=== PATIENT | female | born 1970 | race Hispanic/Latino ===

== ENCOUNTER 2020-08-03 11:50 | Emergency (ER) | payer SELFPAY ==
[~2020-08-03] VITALS: Ht 154.9 cm; Wt 90.7 kg
[2020-08-03] MEDS ORDERED: CLINDAMYCIN HC150 MG PO (12:05)
[2020-08-03] MEDS ORDERED: HIBICLENS120 ML TOP (12:05)
== END 2020-08-03 12:25 | disposition home or self-care (01) ==
LOC: ER 12:00
DX: L03.116 Cellulitis of left lower limb (principal); R73.9 Hyperglycemia, unspecified
CPT/HCPCS: 36415; 82948; 99283

== ENCOUNTER 2022-01-04 06:50 | Inpatient (IN) | payer SELFPAY ==
[~2022-01-04] VITALS: Ht 154.9 cm; Wt 112.0 kg
[~2022-01-04 06:50] MED LIST: CLINDAMYCIN HC150 MG PO; HIBICLENS120 ML TOP; SODIUM CHLORIDE FLUSH 10 ML SYR IV PRN
[2022-01-04] MEDS ORDERED: ONDANSETRON HCL INJ 2MG/ML 2ML 2 MG/ML VIAL IV STA (07:15)
[2022-01-04 08:07] LABS: BASOPHILS # (AUTO) 0.1 (0.0-0.1); BASOPHILS % 0.9 % (0.0-1.0); EOSINOPHILS # (AUTO) 0.2 (0.0-0.4); EOSINOPHILS % 3.4 % (0.0-6.0); HEMATOCRIT 39.7 % (34.2-44.1); HEMOGLOBIN 11.9 g/dL (12.0-16.0); LYMPHOCYTES # (AUTO) 1.3 (1.0-3.2); LYMPHOCYTES % 20.4 % (18.0-39.1); MEAN CORPUSCULAR HEMOGLOBIN 25.1 pg (28-32); MEAN CORPUSCULAR VOLUME 83.8 fL (81-99); MONOCYTES # (AUTO) 0.5 (0.2-0.8); NEUTROPHILS # (AUTO) 4.4 (2.1-6.9); PLATELET COUNT 138 x10e3/uL (140-360); RED BLOOD COUNT 4.74 x10e6/uL (3.6-5.1); RED CELL DISTRIBUTION WIDTH 16.3 % (11.7-14.4)
[2022-01-04 08:37] LABS: ALANINE AMINOTRANSFERASE 17 IU/L (0-55); ALBUMIN/GLOBULIN RATIO 0.8 (0.8-2.0); ALKALINE PHOSPHATASE 141 IU/L (40-150); ANION GAP 15.4 mmol/L (8-16); BLOOD UREA NITROGEN 10 mg/dL (7-26); BUN/CREATININE RATIO 15 (6-25); CALCIUM 7.9 mg/dL (8.4-10.2); CARBON DIOXIDE 23 mmol/L (22-29); CHLORIDE 104 mmol/L (98-107); CREATININE, SERUM 0.68 mg/dL (0.57-1.11); GLUCOSE 105 mg/dL (74-118); LIPASE 36 U/L (8-78); POTASSIUM 3.4 mmol/L (3.5-5.1); SODIUM 139 mmol/L (136-145)
[2022-01-04 08:42] LABS: AMPHETAMINES SCREEN,URINE NEGATIVE (NEGATIVE); PHENCYCLIDINE SCREEN,URINE NEGATIVE (NEGATIVE)
[2022-01-04 08:43] LABS: BENZODIAZEPINES SCREEN,URINE NEGATIVE (NEGATIVE); CLARITY,URINE CLEAR (CLEAR); COLOR,URINE YELLOW (YELLOW); LEUKOCYTE ESTERASE ,URINE NEGATIVE (NEGATIVE); NITRITE,URINE NEGATIVE (NEGATIVE)
[2022-01-04 08:44] LABS: INR 1.15; KETONES,URINE TRACE (NEGATIVE); PROTEIN,URINE DIPSTICK 2+ (NEGATIVE); PROTHROMBIN TIME 15.7 seconds (11.9-14.5); URINE UROBILINOGEN 0.2 mg/dL (0.2 - 1)
[2022-01-04 08:45] LABS: PARTIAL THROMBOPLASTIN TIME 40.5 seconds (23.8-35.5)
[2022-01-04 08:46] LABS: BACTERIA,URINE MODERATE /HPF; EPITHELIAL CELLS,URINE FEW /LPF; RBC,URINE 0-5 /HPF (0-5)
[2022-01-04] MEDS ORDERED: IOPAMIDOL 370 MG/ML 100 ML INFUS..BTL INJ ONE (09:09)
[2022-01-04] MEDS ORDERED: ONDANSETRON HCL INJ 2MG/ML 2ML 2 MG/ML VIAL IV PRN (11:30)
[2022-01-04] MEDS ORDERED: ALBUMIN 25% 12.5GM 50ML 300 ML IV ONE (13:41)
[2022-01-04] MEDS ORDERED: ALBUMIN 25% 12.5GM 50ML 50 ML IV ONE (13:59)
[2022-01-04 15:39] VITALS: BP 114/57
[2022-01-04 16:44] LABS: BODY FLUID APPEARANCE SL.CLOUDY; BODY FLUID COLOR YELLOW; BODY FLUID TYPE PERITONEAL; WBC,BODY FLUID 155 cells/uL
[2022-01-04 16:45] LABS: RBC,BODY FLUID < 2000 cells/uL
[2022-01-04 19:21] LABS: LYMPHOCYTES,BODY FLUID 6 %; MONO/MACROPHG,BODY FLUID 86 %; NEUTROPHILS,BODY FLUID 4 %; OTHER CELLS,BODY FLUID 4 %
[2022-01-04 20:00] VITALS: BP 132/65
[2022-01-04 20:12] VITALS: BP 132/65
[2022-01-04 23:51] VITALS: BP 113/66
[2022-01-05] MEDS ORDERED: ONDANSETRON HCL INJ 2MG/ML 2ML 2 MG/ML VIAL IV PRN (00:30)
[2022-01-05] MEDS ORDERED: HYDRALAZINE HCL 20 MG/ML VIAL IV PRN (00:30)
[2022-01-05] MEDS ORDERED: ACETAMINOPHEN 325 MG TAB PO PRN (00:30)
[2022-01-05 04:27] VITALS: BP 128/66
[2022-01-05 06:20] LABS: BASOPHILS % 0.5 % (0.0-1.0); EOSINOPHILS # (AUTO) 0.1 (0.0-0.4); EOSINOPHILS % 2.5 % (0.0-6.0); HEMATOCRIT 32.8 % (34.2-44.1); HEMOGLOBIN 10.2 g/dL (12.0-16.0); LYMPHOCYTES % 18.3 % (18.0-39.1); MEAN CORPUSCULAR HGB CONC 31.1 g/dL (31-35); MEAN CORPUSCULAR VOLUME 80.4 fL (81-99); MONOCYTES # (AUTO) 0.4 (0.2-0.8); MONOCYTES % 6.2 % (4.4-11.3); NEUTROPHILS # (AUTO) 4.1 (2.1-6.9); PLATELET COUNT 104 x10e3/uL (140-360); RED BLOOD COUNT 4.08 x10e6/uL (3.6-5.1); RED CELL DISTRIBUTION WIDTH 16.4 % (11.7-14.4)
[2022-01-05 06:52] LABS: ALBUMIN 2.9 g/dL (3.5-5.0); ALBUMIN/GLOBULIN RATIO 1.3 (0.8-2.0); ANION GAP 12.7 mmol/L (8-16); CALCIUM 7.6 mg/dL (8.4-10.2); CREATININE, SERUM 0.64 mg/dL (0.57-1.11); POTASSIUM 3.7 mmol/L (3.5-5.1)
[2022-01-05 07:14] LABS: FERRITIN 48.75 ng/mL (4.63-204.00)
[2022-01-05 08:14] VITALS: BP 102/49
[2022-01-05 08:19] LABS: HIV 1&2 AB SCREEN NON-REACTIVE (NONREACTIVE)
[2022-01-05] MEDS: DOCUSATE SODIUM 100 MG CAP PO SCH (08:34)
[2022-01-05] MEDS: SPIRONOLACTONE 25 MG TAB PO SCH ×2 (08:34→16:25)
[2022-01-05] MEDS: SENNOSIDES 8.6 MG TAB PO SCH (08:34)
[2022-01-05 08:44] VITALS: BP 131/63
[2022-01-05] MEDS ORDERED: FUROSEMIDE 40 MG TAB PO SCH (09:00)
[2022-01-05] MEDS ORDERED: FUROSEMIDE INJ 10 MG/ML 4 ML VIAL IV SCH (09:00)
[2022-01-05] MEDS: FOLIC ACID 1 MG TAB PO SCH (11:28)
[2022-01-05 16:08] VITALS: BP 110/55
[2022-01-05] MEDS: ENOXAPARIN SOD INJ 40 MG/0.4 ML SYR SC SCH (16:25)
[2022-01-05 20:00] VITALS: BP 129/64
[2022-01-06] VITALS (9 sets, daily range): BP systolic 108–131; BP diastolic 53–79
[2022-01-06 06:53] LABS: BASOPHILS % 0.7 % (0.0-1.0); EOSINOPHILS # (AUTO) 0.2 (0.0-0.4); EOSINOPHILS % 3.7 % (0.0-6.0); HEMATOCRIT 32.2 % (34.2-44.1); HEMOGLOBIN 10.2 g/dL (12.0-16.0); LYMPHOCYTES # (AUTO) 1.2 (1.0-3.2); LYMPHOCYTES % 21.4 % (18.0-39.1); MEAN CORPUSCULAR HEMOGLOBIN 25.2 pg (28-32); MEAN CORPUSCULAR HGB CONC 31.7 g/dL (31-35); MEAN CORPUSCULAR VOLUME 79.5 fL (81-99); MONOCYTES # (AUTO) 0.4 (0.2-0.8); MONOCYTES % 7.7 % (4.4-11.3); NEUTROPHILS # (AUTO) 3.8 (2.1-6.9); NEUTROPHILS % 66.2 % (38.7-80.0); PLATELET COUNT 112 x10e3/uL (140-360); RED BLOOD COUNT 4.05 x10e6/uL (3.6-5.1); RED CELL DISTRIBUTION WIDTH 16.2 % (11.7-14.4)
[2022-01-06 07:17] LABS: ALBUMIN 2.9 g/dL (3.5-5.0); ALBUMIN/GLOBULIN RATIO 1.3 (0.8-2.0); ANION GAP 12.3 mmol/L (8-16); CALCIUM 7.9 mg/dL (8.4-10.2); CREATININE, SERUM 0.61 mg/dL (0.57-1.11); POTASSIUM 3.3 mmol/L (3.5-5.1)
[2022-01-06] MEDS ORDERED: POTASSIUM CHLORIDE 20 MEQ TAB CR PO ONE (10:00)
[2022-01-06] MEDS: IRON SUCROSE 100 MG in SODIUM CHLORIDE 0.9% 100 ML IV SCH (10:12)
[2022-01-06] MEDS: FUROSEMIDE INJ 10 MG/ML 4 ML VIAL IV SCH ×2 (10:12→21:34)
[2022-01-06] MEDS: DOCUSATE SODIUM 100 MG CAP PO SCH (10:12)
[2022-01-06] MEDS: SPIRONOLACTONE 25 MG TAB PO SCH ×2 (10:12→17:36)
[2022-01-06] MEDS: SENNOSIDES 8.6 MG TAB PO SCH (10:13)
[2022-01-06] MEDS: FOLIC ACID 1 MG TAB PO SCH (10:13)
[2022-01-06] MEDS ORDERED: SODIUM CHLORIDE 0.9% 100 ML ONE (10:27)
[2022-01-06] MEDS ORDERED: ALBUMIN 25% 12.5GM 50ML 150 ML IV ONE (16:52)
[2022-01-06] MEDS: ENOXAPARIN SOD INJ 40 MG/0.4 ML SYR SC SCH (17:00)
[2022-01-06] MEDS ORDERED: ALBUMIN 25% 12.5GM 50ML 50 ML IV ONE (17:29)
[2022-01-07] VITALS (7 sets, daily range): BP systolic 111–129; BP diastolic 56–73
[2022-01-07 06:11] LABS: BASOPHILS % 0.7 % (0.0-1.0); EOSINOPHILS # (AUTO) 0.2 (0.0-0.4); HEMATOCRIT 31.6 % (34.2-44.1); LYMPHOCYTES # (AUTO) 1.1 (1.0-3.2); LYMPHOCYTES % 23.3 % (18.0-39.1); MEAN CORPUSCULAR HEMOGLOBIN 25.6 pg (28-32); MEAN CORPUSCULAR HGB CONC 31.6 g/dL (31-35); MONOCYTES # (AUTO) 0.3 (0.2-0.8); MONOCYTES % 7.6 % (4.4-11.3); NEUTROPHILS # (AUTO) 2.9 (2.1-6.9); NEUTROPHILS % 64.2 % (38.7-80.0); PLATELET COUNT 103 x10e3/uL (140-360); RED CELL DISTRIBUTION WIDTH 16.1 % (11.7-14.4)
[2022-01-07 06:48] LABS: ALBUMIN 3.4 g/dL (3.5-5.0); ALBUMIN/GLOBULIN RATIO 1.9 (0.8-2.0); ANION GAP 12.2 mmol/L (8-16); CALCIUM 7.9 mg/dL (8.4-10.2); CREATININE, SERUM 0.61 mg/dL (0.57-1.11); MAGNESIUM 1.9 MG/DL (1.3-2.1); POTASSIUM 3.2 mmol/L (3.5-5.1)
[2022-01-07] MEDS: SENNOSIDES 8.6 MG TAB PO SCH (09:00)
[2022-01-07] MEDS: SPIRONOLACTONE 25 MG TAB PO SCH ×2 (09:06→17:02)
[2022-01-07] MEDS: DOCUSATE SODIUM 100 MG CAP PO SCH (09:07)
[2022-01-07] MEDS: FUROSEMIDE INJ 10 MG/ML 4 ML VIAL IV SCH ×2 (09:07→20:26)
[2022-01-07] MEDS: IRON SUCROSE 100 MG in SODIUM CHLORIDE 0.9% 100 ML IV SCH (09:07)
[2022-01-07] MEDS: FOLIC ACID 1 MG TAB PO SCH (09:08)
[2022-01-07] MEDS ORDERED: POTASSIUM CHLORIDE 20 MEQ TAB CR PO NR (14:00)
[2022-01-07] MEDS: ENOXAPARIN SOD INJ 40 MG/0.4 ML SYR SC SCH (17:00)
[2022-01-08] VITALS (7 sets, daily range): BP systolic 105–130; BP diastolic 57–75
[2022-01-08 05:57] LABS: ANION GAP 12.7 mmol/L (8-16); CALCIUM 8.3 mg/dL (8.4-10.2); CREATININE, SERUM 0.64 mg/dL (0.57-1.11); POTASSIUM 3.7 mmol/L (3.5-5.1)
[2022-01-08] MEDS: FUROSEMIDE INJ 10 MG/ML 4 ML VIAL IV SCH ×2 (08:30→21:17)
[2022-01-08] MEDS: IRON SUCROSE 100 MG in SODIUM CHLORIDE 0.9% 100 ML IV SCH (08:30)
[2022-01-08] MEDS: DOCUSATE SODIUM 100 MG CAP PO SCH (08:31)
[2022-01-08] MEDS: FOLIC ACID 1 MG TAB PO SCH (08:31)
[2022-01-08] MEDS: SPIRONOLACTONE 25 MG TAB PO SCH ×2 (08:31→17:21)
[2022-01-08] MEDS: SENNOSIDES 8.6 MG TAB PO SCH (08:32)
[2022-01-08] MEDS: ENOXAPARIN SOD INJ 40 MG/0.4 ML SYR SC SCH (17:00)
[2022-01-09] VITALS: BP 120/80
[2022-01-09 04:00] VITALS: BP 114/61
[2022-01-09 07:58] VITALS: BP 118/69
[2022-01-09 08:24] VITALS: BP 118/69
[2022-01-09 08:42] LABS: BASOPHILS % 0.6 % (0.0-1.0); EOSINOPHILS # (AUTO) 0.2 (0.0-0.4); EOSINOPHILS % 3.4 % (0.0-6.0); HEMATOCRIT 39.3 % (34.2-44.1); HEMOGLOBIN 12.2 g/dL (12.0-16.0); LYMPHOCYTES # (AUTO) 1.3 (1.0-3.2); LYMPHOCYTES % 18.7 % (18.0-39.1); MEAN CORPUSCULAR HEMOGLOBIN 25.1 pg (28-32); MEAN CORPUSCULAR VOLUME 80.9 fL (81-99); MONOCYTES # (AUTO) 0.4 (0.2-0.8); MONOCYTES % 5.7 % (4.4-11.3); NEUTROPHILS % 71.3 % (38.7-80.0); PLATELET COUNT 130 x10e3/uL (140-360); RED BLOOD COUNT 4.86 x10e6/uL (3.6-5.1)
[2022-01-09 09:10] LABS: ALBUMIN 3.5 g/dL (3.5-5.0); ALBUMIN/GLOBULIN RATIO 1.3 (0.8-2.0); ANION GAP 14.7 mmol/L (8-16); CALCIUM 8.3 mg/dL (8.4-10.2); CREATININE, SERUM 0.74 mg/dL (0.57-1.11); POTASSIUM 3.7 mmol/L (3.5-5.1)
[2022-01-09] MEDS: FUROSEMIDE INJ 10 MG/ML 4 ML VIAL IV SCH (09:33)
[2022-01-09] MEDS: DOCUSATE SODIUM 100 MG CAP PO SCH (09:34)
[2022-01-09] MEDS: IRON SUCROSE 100 MG in SODIUM CHLORIDE 0.9% 100 ML IV SCH (09:34)
[2022-01-09] MEDS: SENNOSIDES 8.6 MG TAB PO SCH (09:34)
[2022-01-09] MEDS: FOLIC ACID 1 MG TAB PO SCH (09:34)
[2022-01-09] MEDS: SPIRONOLACTONE 25 MG TAB PO SCH ×2 (09:34→16:45)
[2022-01-09] MEDS ORDERED: SODIUM CHLORIDE 0.9% 250ML 250 ML ONE (09:53)
[2022-01-09 11:28] VITALS: BP 118/67
[2022-01-09] MEDS ORDERED: CEFTRIAXONE 1 GM VIAL ONE (12:19)
[2022-01-09] MEDS ORDERED: LASIX40 MG PO (13:21)
[2022-01-09] MEDS ORDERED: FEROSUL325 MG PO (13:21)
[2022-01-09] MEDS ORDERED: ALDACTONE50 MG PO (13:21)
[2022-01-09 15:17] VITALS: BP 103/59
[2022-01-09] MEDS: ENOXAPARIN SOD INJ 40 MG/0.4 ML SYR SC SCH (16:46)
== END 2022-01-09 16:53 | disposition home or self-care (01) | DRG 433 ==
LOC: ER 07:02 → ERHOLD 11:34 → MED/SURG2 15:05
PROVIDERS: ADMIT Internal Medicine; ATTEND Internal Medicine
PROC: 0W9G3ZZ Drainage of Peritoneal Cavity, Percutaneous Approach (ICD-10-PCS; 2022-01-04)
PROC: 0W9G3ZZ Drainage of Peritoneal Cavity, Percutaneous Approach (ICD-10-PCS; principal; 2022-01-06)
DX: K74.60 Unspecified cirrhosis of liver (principal); K76.6 Portal hypertension; R18.8 Other ascites; Z68.42 Body mass index [BMI] 45.0-49.9, adult; N39.0 Urinary tract infection, site not specified; E66.01 Morbid (severe) obesity due to excess calories; D64.9 Anemia, unspecified; D69.59 Other secondary thrombocytopenia; D63.8 Anemia in other chronic diseases classified elsewhere; E87.6 Hypokalemia; Z20.822 Contact with and (suspected) exposure to COVID-19
CPT/HCPCS: 36415; 49083; 71045; 74177; 74470; 76705; 80048; 80053; 80307; 81001; 82040; 82105; 82607; 82728; 82746; 83540; 83690; 83735; 83880; 84157; 84443; 84466; 84484; 85025; 85045; 85610; 85730; 86039; 86704; 87070; 87205; 87390; 88112; 88305; 89051; 93005; 99284; C1729; G0433; G0435; J0696; J1650; J1756; J1940; J7050; Q9967

== ENCOUNTER 2022-03-20 10:54 | Inpatient (IN) | payer SELFPAY ==
[~2022-03-20] VITALS: Ht 152.4 cm; Wt 102.2 kg
[~2022-03-20 10:54] MED LIST changes: +ALDACTONE50 MG PO; +FEROSUL325 MG PO; +LASIX40 MG PO; -SODIUM CHLORIDE FLUSH 10 ML SYR IV PRN
[2022-03-20] MEDS ORDERED: FUROSEMIDE INJ 10 MG/ML 4 ML VIAL IV ONE (11:30)
[2022-03-20 11:46] LABS: BASOPHILS # (AUTO) 0.1 (0.0-0.1); BASOPHILS % 0.6 % (0.0-1.0); EOSINOPHILS # (AUTO) 0.1 (0.0-0.4); EOSINOPHILS % 1.5 % (0.0-6.0); HEMATOCRIT 35.1 % (34.2-44.1); LYMPHOCYTES % 12.8 % (18.0-39.1); MEAN CORPUSCULAR HEMOGLOBIN 27.2 pg (28-32); MEAN CORPUSCULAR HGB CONC 31.3 g/dL (31-35); MEAN CORPUSCULAR VOLUME 86.9 fL (81-99); MONOCYTES # (AUTO) 0.5 (0.2-0.8); MONOCYTES % 6.4 % (4.4-11.3); NEUTROPHILS # (AUTO) 6.3 (2.1-6.9); NEUTROPHILS % 78.2 % (38.7-80.0); PLATELET COUNT 167 x10e3/uL (140-360); RED BLOOD COUNT 4.04 x10e6/uL (3.6-5.1); RED CELL DISTRIBUTION WIDTH 18.6 % (11.7-14.4)
[2022-03-20 11:56] LABS: INR 1.35; PROTHROMBIN TIME 17.8 seconds (11.9-14.5)
[2022-03-20 12:01] LABS: ALBUMIN 2.8 g/dL (3.5-5.0); ALBUMIN/GLOBULIN RATIO 0.7 (0.8-2.0); CALCIUM 8.5 mg/dL (8.4-10.2); CREATININE, SERUM 0.81 mg/dL (0.57-1.11)
[2022-03-20 12:05] LABS: MAGNESIUM 2.1 MG/DL (1.3-2.1)
[2022-03-20] MEDS ORDERED: ONDANSETRON HCL INJ 2MG/ML 2ML 2 MG/ML VIAL IV PRN ×2 (12:30→23:45)
[2022-03-20] MEDS ORDERED: SODIUM CHLORIDE FLUSH 10 ML SYR INJ PRN (12:30)
[2022-03-20] MEDS ORDERED: ALBUMIN 25% 12.5GM 0.25 GM/ML BTL IV ONE (12:30)
[2022-03-20] MEDS ORDERED: SPIRONOLACTONE25 MG PO (14:31)
[2022-03-20 15:58] VITALS: BP 115/80
[2022-03-20] MEDS ORDERED: ALBUMIN 25% 12.5GM 50ML 100 ML IV ONE (16:50)
[2022-03-20 20:00] VITALS: BP 111/70
[2022-03-20] MEDS ORDERED: DIPHENHYDRAMINE HCL 25 MG CAP PO PRN (23:45)
[2022-03-20] MEDS ORDERED: FUROSEMIDE INJ 10 MG/ML 2 ML VIAL IV SCH (23:45)
[2022-03-20] MEDS ORDERED: DOCUSATE SODIUM 100 MG CAP PO PRN (23:45)
[2022-03-20] MEDS ORDERED: MELATONIN 5 MG TABLET PO PRN (23:45)
[2022-03-20] MEDS ORDERED: POTASSIUM CHLORIDE 20 MEQ TAB CR PO PRN (23:45)
[2022-03-20] MEDS ORDERED: DEXTROSE 50% SYRINGE 50 ML IV PRN (23:45)
[2022-03-20] MEDS ORDERED: ALBUMIN 25% 25GM 100ML 0.25 GM/ML BTL IV ONE (23:45)
[2022-03-20] MEDS ORDERED: LIDOCAINE 4% PATCH TP PRN (23:45)
[2022-03-20] MEDS ORDERED: HYDRALAZINE HCL 20 MG/ML VIAL IV PRN (23:45)
[2022-03-20] MEDS ORDERED: SIMETHICONE 80 MG CHEW PO PRN (23:45)
[2022-03-20] MEDS ORDERED: ALBUTEROL/IPRATROPIUM 3 ML NEB NEB PRN (23:45)
[2022-03-20] MEDS ORDERED: BENZONATATE 100 MG CAP PO PRN (23:45)
[2022-03-21] VITALS (9 sets, daily range): BP systolic 104–120; BP diastolic 58–73
[2022-03-21] MEDS ORDERED: SPIRONOLACTONE 25 MG TAB PO SCH (02:00)
[2022-03-21] MEDS: FUROSEMIDE INJ 10 MG/ML 4 ML VIAL IV SCH ×2 (05:56→11:26)
[2022-03-21 06:39] LABS: BASOPHILS % 0.7 % (0.0-1.0); EOSINOPHILS # (AUTO) 0.2 (0.0-0.4); EOSINOPHILS % 2.7 % (0.0-6.0); HEMOGLOBIN 9.2 g/dL (12.0-16.0); LYMPHOCYTES # (AUTO) 0.8 (1.0-3.2); LYMPHOCYTES % 15.1 % (18.0-39.1); MEAN CORPUSCULAR HEMOGLOBIN 27.8 pg (28-32); MEAN CORPUSCULAR HGB CONC 31.7 g/dL (31-35); MEAN CORPUSCULAR VOLUME 87.6 fL (81-99); MONOCYTES # (AUTO) 0.4 (0.2-0.8); MONOCYTES % 6.4 % (4.4-11.3); NEUTROPHILS # (AUTO) 4.1 (2.1-6.9); NEUTROPHILS % 74.7 % (38.7-80.0); PLATELET COUNT 150 x10e3/uL (140-360); RED BLOOD COUNT 3.31 x10e6/uL (3.6-5.1); RED CELL DISTRIBUTION WIDTH 18.6 % (11.7-14.4)
[2022-03-21 07:01] LABS: ALBUMIN 3.4 g/dL (3.5-5.0); ALBUMIN/GLOBULIN RATIO 1.2 (0.8-2.0); ANION GAP 12.5 mmol/L (8-16); CALCIUM 8.4 mg/dL (8.4-10.2); CREATININE, SERUM 0.73 mg/dL (0.57-1.11); POTASSIUM 3.5 mmol/L (3.5-5.1)
[2022-03-21 07:23] LABS: MAGNESIUM 1.9 MG/DL (1.3-2.1); PHOSPHORUS 3.4 MG/DL (2.3-4.7)
[2022-03-21] MEDS: SPIRONOLACTONE 25 MG TAB PO SCH ×2 (08:01→16:21)
[2022-03-21] MEDS: PANTOPRAZOLE SOD 40 MG TABEC PO SCH (08:01)
[2022-03-21] MEDS: MIDODRINE HCL 5 MG TABLET PO SCH ×2 (13:33→21:59)
[2022-03-21] MEDS: FUROSEMIDE INJ 100 MG in SODIUM CHLORIDE 0.9% 90 ML IV SCH ×2 (13:34→23:41)
[2022-03-21] MEDS: ENOXAPARIN SOD INJ 40 MG/0.4 ML SYR SC SCH (16:25)
[2022-03-22] VITALS (8 sets, daily range): BP systolic 94–107; BP diastolic 42–70
[2022-03-22] MEDS: MIDODRINE HCL 5 MG TABLET PO SCH ×3 (05:22→21:11)
[2022-03-22 05:52] LABS: BASOPHILS # (AUTO) 0.1 (0.0-0.1); BASOPHILS % 0.8 % (0.0-1.0); EOSINOPHILS # (AUTO) 0.2 (0.0-0.4); EOSINOPHILS % 3.5 % (0.0-6.0); HEMATOCRIT 28.8 % (34.2-44.1); HEMOGLOBIN 9.3 g/dL (12.0-16.0); LYMPHOCYTES # (AUTO) 0.9 (1.0-3.2); LYMPHOCYTES % 15.1 % (18.0-39.1); MEAN CORPUSCULAR HEMOGLOBIN 27.8 pg (28-32); MEAN CORPUSCULAR HGB CONC 32.3 g/dL (31-35); MONOCYTES # (AUTO) 0.5 (0.2-0.8); MONOCYTES % 8.3 % (4.4-11.3); NEUTROPHILS # (AUTO) 4.4 (2.1-6.9); PLATELET COUNT 149 x10e3/uL (140-360); RED BLOOD COUNT 3.35 x10e6/uL (3.6-5.1)
[2022-03-22 06:23] LABS: ANION GAP 15.3 mmol/L (8-16); CALCIUM 8.1 mg/dL (8.4-10.2); CREATININE, SERUM 0.74 mg/dL (0.57-1.11); POTASSIUM 3.3 mmol/L (3.5-5.1)
[2022-03-22] MEDS ORDERED: ALBUMIN 25% 25GM 100ML 0.25 GM/ML BTL IV ONE (07:00)
[2022-03-22] MEDS ORDERED: ALBUMIN 25% 12.5GM 50ML 100 ML IV ONE (08:00)
[2022-03-22] MEDS ORDERED: ALBUMIN 25% 12.5GM 50ML 200 ML IV ONE (08:30)
[2022-03-22] MEDS: FUROSEMIDE INJ 100 MG in SODIUM CHLORIDE 0.9% 90 ML IV SCH ×2 (09:52→10:24)
[2022-03-22] MEDS: PANTOPRAZOLE SOD 40 MG TABEC PO SCH (09:53)
[2022-03-22] MEDS: SPIRONOLACTONE 25 MG TAB PO SCH ×2 (09:53→17:10)
[2022-03-22] MEDS ORDERED: ALBUMIN 25% 12.5GM 0.25 GM/ML BTL IV SCH (12:00)
[2022-03-22] MEDS: ALBUMIN 25% 12.5GM 50ML 50 ML IV SCH ×3 (12:12→23:28)
[2022-03-22] MEDS ORDERED: SODIUM CHLORIDE 0.9% 250ML 250 ML ONE (12:29)
[2022-03-22] MEDS: ENOXAPARIN SOD INJ 40 MG/0.4 ML SYR SC SCH (17:00)
[2022-03-23] VITALS: BP 98/47
[2022-03-23 04:00] VITALS: BP 100/62
[2022-03-23 05:01] LABS: BASOPHILS % 0.7 % (0.0-1.0); EOSINOPHILS # (AUTO) 0.2 (0.0-0.4); EOSINOPHILS % 3.1 % (0.0-6.0); HEMATOCRIT 26.6 % (34.2-44.1); HEMOGLOBIN 8.7 g/dL (12.0-16.0); LYMPHOCYTES # (AUTO) 0.8 (1.0-3.2); LYMPHOCYTES % 15.3 % (18.0-39.1); MEAN CORPUSCULAR HEMOGLOBIN 27.4 pg (28-32); MEAN CORPUSCULAR HGB CONC 32.7 g/dL (31-35); MEAN CORPUSCULAR VOLUME 83.9 fL (81-99); MONOCYTES # (AUTO) 0.6 (0.2-0.8); MONOCYTES % 10.2 % (4.4-11.3); NEUTROPHILS # (AUTO) 3.9 (2.1-6.9); NEUTROPHILS % 70.2 % (38.7-80.0); PLATELET COUNT 141 x10e3/uL (140-360); RED BLOOD COUNT 3.17 x10e6/uL (3.6-5.1); RED CELL DISTRIBUTION WIDTH 17.8 % (11.7-14.4)
[2022-03-23] MEDS: FUROSEMIDE INJ 100 MG in SODIUM CHLORIDE 0.9% 90 ML IV SCH (05:05)
[2022-03-23] MEDS: ALBUMIN 25% 12.5GM 50ML 50 ML IV SCH (05:17)
[2022-03-23] MEDS: MIDODRINE HCL 5 MG TABLET PO SCH ×2 (05:17→14:23)
[2022-03-23 05:24] LABS: ANION GAP 13.7 mmol/L (8-16); CALCIUM 8.1 mg/dL (8.4-10.2); CREATININE, SERUM 0.73 mg/dL (0.57-1.11); POTASSIUM 3.7 mmol/L (3.5-5.1)
[2022-03-23 08:25] VITALS: BP 96/57
[2022-03-23 09:00] VITALS: BP 96/57
[2022-03-23] MEDS: PANTOPRAZOLE SOD 40 MG TABEC PO SCH (09:07)
[2022-03-23] MEDS: SPIRONOLACTONE 25 MG TAB PO SCH (09:07)
[2022-03-23 11:34] VITALS: BP 96/59
[2022-03-23] MEDS ORDERED: ONDANSETRON HCL 4 MG ORAL DISINTEGRATING TAB PO PRN (12:30)
[2022-03-23 16:09] VITALS: BP 111/63
== END 2022-03-23 16:05 | disposition home or self-care (01) | DRG 433 ==
LOC: ER 11:01 → ERHOLD 12:19 → MED/SURG3 15:58 → MED/SURG 23:58 → MED/SURG3 03-21 00:23
PROVIDERS: ADMIT Internal Medicine; ATTEND Internal Medicine
PROC: 0W9G3ZZ Drainage of Peritoneal Cavity, Percutaneous Approach (ICD-10-PCS; 2022-03-20)
PROC: 0W9G3ZZ Drainage of Peritoneal Cavity, Percutaneous Approach (ICD-10-PCS; 2022-03-21)
PROC: 0W9G3ZZ Drainage of Peritoneal Cavity, Percutaneous Approach (ICD-10-PCS; principal; 2022-03-22)
DX: K74.69 Other cirrhosis of liver (principal); R18.8 Other ascites; Z68.41 Body mass index [BMI] 40.0-44.9, adult; K75.81 Nonalcoholic steatohepatitis (NASH); Z20.822 Contact with and (suspected) exposure to COVID-19; I10 Essential (primary) hypertension; E66.01 Morbid (severe) obesity due to excess calories
CPT/HCPCS: 0223U; 36415; 49083; 71045; 74470; 76705; 80048; 80053; 82103; 82105; 82140; 82390; 83735; 83880; 84100; 84484; 85025; 85610; 93005; 99284; C1729; J1650; J1940; J7050; P9047

== ENCOUNTER 2022-05-03 20:19 | Emergency (ER) | payer OTHER ==
[~2022-05-03] VITALS: Ht 154.9 cm; Wt 102.1 kg
[~2022-05-03 20:19] MED LIST changes: +SPIRONOLACTONE25 MG PO
[2022-05-03] MEDS ORDERED: TETANUS/DIPHTHERIA TOX ADULT 0.5 ML SYR IM ONE (21:45)
== END 2022-05-03 23:40 | disposition home or self-care (01) ==
LOC: ER 20:24
DX: R10.9 Unspecified abdominal pain (principal); S00.83XA Contusion of other part of head, initial encounter; W01.0XXA Fall on same level from slipping, tripping and stumbling without subsequent striking against object, initial encounter; Y93.01 Activity, walking, marching and hiking; Y92.89 Other specified places as the place of occurrence of the external cause; R18.8 Other ascites; K74.60 Unspecified cirrhosis of liver; I10 Essential (primary) hypertension
CPT/HCPCS: 70450; 72125; 74176; 90714; 99284

== ENCOUNTER 2022-07-04 11:18 | Emergency (ER) | payer OTHER ==
[~2022-07-04] VITALS: Ht 154.9 cm; Wt 102.1 kg
== END 2022-07-04 11:48 | disposition home or self-care (01) ==
LOC: ER 11:22
DX: K74.60 Unspecified cirrhosis of liver (principal); R18.8 Other ascites; D64.9 Anemia, unspecified; I10 Essential (primary) hypertension
CPT/HCPCS: 99282

== ENCOUNTER 2022-07-04 18:12 | Emergency (ER) | payer OTHER ==
[~2022-07-04] VITALS: Ht 154.9 cm; Wt 102.1 kg
== END 2022-07-04 18:35 | disposition home or self-care (01) ==
LOC: ER 18:17
DX: R18.8 Other ascites (principal); K74.60 Unspecified cirrhosis of liver; D64.9 Anemia, unspecified; I10 Essential (primary) hypertension
CPT/HCPCS: 99282